=== PATIENT | male | born 1955 | race Caucasian/White ===

== ENCOUNTER 2021-10-18 09:45 | Day surgery (SDC) | payer OTHER ==
[2021-10-13 08:59] LABS: Absolute Lymphocytes (CBC) 1.7 K/uL (0.7-4.9); Hematocrit 38.7 % (39.6-49.0); Lymphocytes % 32.7 % (15.3-44.8); MCV 89.1 fL (80-100); RBC Red Blood Cell Count 4.34 M/uL (4.33-5.43)
--- NOTE | 2021-10-13 09:07 | RAD REPORT ---
EXAM DESCRIPTION: RAD - Chest Pa And Lat (2 Views) - 10/13/2021 8:40 am CLINICAL HISTORY: pre op COMPARISON: No comparisons FINDINGS: Lines: None. Lungs: No evidence of edema or pneumonia. Pleural: No significant pleural effusions or pneumothorax. Cardiac: The heart size is within normal limits. Bones: No acute fractures. ACDF in the cervical spine. Other: IMPRESSION: No acute cardiopulmonary disease.
[2021-10-13 09:11] LABS: Potassium 3.5 mmol/L (3.5-5.1)
[2021-10-13 09:21] LABS: Protime INR 1.47
[2021-10-13 09:54] LABS: SARS-CoV-2 Antigen Rapid Res Negative (Negative)
--- NOTE | 2021-10-13 14:30 | EKG ---
Test Date: 2021-10-13 Test Time: 08:47:05 Web Marketing Strategist: XIMENA MEASUREMENT RESULTS: Intervals: Rate: 58 OK: QRSD: 92 QT: 408 QTc: 400 Virgin: P: OK: QRS: -5 T: 38 INTERPRETIVE STATEMENTS: Atrial fibrillation with slow ventricular response Abnormal ECG No previous ECG available for comparison Electronically Signed On 10-13-21 14:30:10 CDT by César Mathew
[2021-10-18] MEDS ORDERED: CEFAZOLIN 2 GM IN 0.9% NACL 2 GM/100 ML BAG ONE (09:57)
[2021-10-18] MEDS ORDERED: Ringers Lactate 1,000 ML IV ONE ×2 (09:57→14:49)
[2021-10-18] MEDS ORDERED: propofoL 200 MG/20 ML VIAL IV ONE (11:57)
[2021-10-18] MEDS ORDERED: LIDOCAINE 1% MPF 5 ML VIAL ONE (11:57)
[2021-10-18] MEDS ORDERED: FENTANYL CITR 100 MCG/2 ML ONE (11:57)
[2021-10-18] MEDS ORDERED: MIDAZOLAM HCL 2 MG/2 ML INJ ONE (11:57)
[2021-10-18] MEDS ORDERED: GLYCOPYRROLATE 0.2 MG/ML SYR ONE (13:00)
[2021-10-18] MEDS ORDERED: BACITRACIN OINTMENT 14 GM TUBE TOP ONE (13:45)
[2021-10-18] MEDS: HYDROMORPHONE HCL 1 MG/ML INJ ONE ×6 (14:14→14:50)
[2021-10-18] MEDS ORDERED: PHENAZOPYRIDINE 100MG TAB PO ONE ×2 (14:29→14:43)
[2021-10-18] MEDS ORDERED: CODEINE 30MG/APAP 300MG TAB PO PRN (14:29)
[2021-10-18] MEDS ORDERED: ROCURONIUM 50 MG/5 ML VIAL IV ONE (14:48)
[2021-10-18] MEDS ORDERED: OPIUM/BELLADONNA SUPPOS (30-16.2 MG) PR ONE ×2 (14:49→15:01)
[2021-10-18] MEDS ORDERED: CODEINE 30MG/APAP 300MG TAB ONE (15:55)
[2021-10-18 16:42] VITALS: BP 128/79; TEMP 97.5; O2SAT 97
--- NOTE | 2021-10-19 09:34 | OP ---
Surgeon: SAMUEL PICHARDO Preoperative Diagnoses: 1.Benign prostatic hypertrophy with lower urinary tract obstruction and symptoms. 2.Meatal stenosis. Postoperative Diagnoses: 1.Benign prostatic hypertrophy with lower urinary tract obstruction and symptoms. 2.Meatal stenosis. Principal Procedure: 1.Meatoplasty. 2.Prostatic urethral lift/UroLift with 6 implants placed. Indication For Procedure: Mr. Collado is a 66-year-old gentleman with atrial fibrillation, on Eliqui s, and other medical conditions with the presence of moderate lower urinary tract obstructive symptom s in the absence of significant prostatic enlargement, and history of 2 prior prostate biopsies for e levated PSA in the absence of distinct nodularity within his prostate. He had a cystoscopic evaluati on on 09/29/2021, revealing meatal stenosis with trilobar hypertrophy without significant intravesica l projection and was thus counseled on options to manage the obstruction to include meatoplasty and U roLift as opposed to other ablative or resection procedures. He elected to proceed with the UroLift and was counseled and scheduled accordingly. Procedure In Detail: The patient was consented in the preoperative holding area before being transfe rred to the operative suite, where general anesthesia was induced. He was given Ancef 2 g IV antimic robial prophylaxis and pneumo boots were provided for DVT prophylaxis. He was placed in the lithotom y position, padded, and secured to the table appropriately. His genitalia were prepped using Hibicle ns and he was draped in standard fashion. The case was begun, beginning with the meatal stenosis. A straight snap was used to clamp approximately 4 to 5 mm of tissue in the inferior portion of the willie tus and provide crushing hemostasis of the capillary blood supply there. Then, tenotomy scissors wer e used to dilate the crushed tissue opening up the meatus. Urethral sounds were then used to calibra te the opening and initially this was only patent to 20-Malagasy. As a result, since this would still not be missed, the 20-Malagasy cystoscopy bridge with the UroLift device, I took an additional 3 to 4 m m of tissue inferiorly along the frenular surface of the meatus and divided the intervening tissue ag ain using tenotomy scissors. 4-0 Monocryl was used in an interrupted fashion to approximate the epit helial layers of the mucosa and provide a degree of hemostasis where necessary, bilaterally. I was t hen able to calibrate the urethral meatus easily to 22-Malagasy with a bit of residual stenosis when di lating to 24-Malagasy. After this, I was then easily able to pass the 20-Malagasy cystoscopy bridge via the urethra and into his bladder, observing the prostatic urethral hypertrophy along the way. I then decompressed his bladder of fluid and urine before inserting a UroLift implant delivery device. The first treatment site targeted was the patient's left side approximately 2 cm distal to the bladder n ozzie. The distal tip of the delivery device was angled laterally, approximately 20 degrees at this po sition to compress the lateral lobe and the trigger was pulled, deploying the needle containing the i mplant through the prostate. The needle was then compressed further to ensure delivery to the extrac apsular space before the end of the implant was delivered to the capsular surface of the prostate. T he implant was then tensioned and compressed to ensure more capsular seeding and removal of slack mon ofilament. The device was then angled back toward the midline and slowly advance proximally about 2- 3 mm until cystoscopic verification of the monofilament was centered in the delivery bay. The urethr al endpiece was then affixed to the monofilament, thereby tailoring the size of the implant, and exce ss filament was then severed. The delivery device was then readvanced into the bladder and a new del yayo device was inserted. Because there was a slight non-projecting median lobe that was present, I then identified the sulcus to the right of the median lobe and lateralized the median lobe, taking i t slightly anteriorly pinning it against the left lateral lobe of the prostate at the bladder neck an d delivering a second implant approximately 1.5 cm through that tissue. This implant did place itsel f deep within the tissues and was no longer significantly visible, though it did completely compress and lateralize that median lobe. A careful search within the intravesical surface revealed no eviden ce of the suture or implant inside of the bladder neck. I then placed a third implant at this time i n the anterior lateral zone of the right lobe of the prostate, approximately 2 cm from the bladder ne ck. A fifth implant was then placed at the left apex anterolaterally at the level of the verumontanu m, and a 6th implant was placed at the right anterolateral apical region at the level of the verumont montrell. In the end, survey of the channel revealed a very nicely patent anterior channel with the blad mario completely decompressed and the fluid inflow off. There was minimal gross hematuria at this poin t, and so I left his bladder full and placed a 20-Malagasy Coude tip catheter into his bladder with eas e. 20 cc of sterile water was placed in the balloon, and the catheter was allowed to decompress befo re being connected to a leg bag. Bacitracin was placed around the meatoplasty site and around the ca theter to lubricate it. I then irrigated the catheter with 120 cc of sterile water to ensure no clot s, and while the urine was light pink, no clots were seen. As a result, the patient was then taken o ut of the lithotomy position, awakened from general anesthesia, transferred to a stretcher, and then transferred to the recovery room in good condition. Complications: None. Discharge Disposition: I will ask him to keep the catheter for at least 5 to 7 days to allow the willie toplasty to heal in an open configuration. Meanwhile, he will be discharged with a prescription for either Keflex or Bactrim for the next 7 days with anticipated voiding trial on Sunday of next week. MAO/DANILO Voice ID: [id number] Report ID: [id number]
== END 2021-10-18 16:40 | disposition home or self-care (01) ==
LOC: OR 09:45
PROVIDERS: ATTEND Urology
PROC: 0T7D8ZZ Dilation of Urethra, Via Natural or Artificial Opening Endoscopic (ICD-10-PCS; 2021-10-18)
PROC: 3C1ZX8Z Irrigation of Indwelling Device using Irrigating Substance, External Approach (ICD-10-PCS; 2021-10-18)
PROC: 0T7D8DZ Dilation of Urethra with Intraluminal Device, Via Natural or Artificial Opening Endoscopic (ICD-10-PCS; principal; 2021-10-18 11:30)
DX: N40.1 Benign prostatic hyperplasia with lower urinary tract symptoms (principal); N35.911 Unspecified urethral stricture, male, meatal; Z20.822 Contact with and (suspected) exposure to COVID-19
CPT/HCPCS: 93005; 85025; 87086; 80048; 36415; 85610; 71046; 87811; 52441; 52442 ×5; 53460; 51700; J2704; J2250; J3010; J1170 ×3; J0690; J7120 ×2; 87088